=== PATIENT | male | born 1995 | race African-American/Black ===

== ENCOUNTER 2017-04-01 16:45 | Inpatient (IN) | payer MEDICAID, OTHER ==
--- NOTE | 2017-04-01 17:48 | ED ---
General Adult HPI - General Chief complaint: Recheck/Abnormal Lab/Rx Stated complaint: Shaking Time Seen by Provider: 04/01/17 16:58 Source: patient, family Mode of arrival: wheelchair Limitations: no limitations - History of Present Illness Initial comments: 21-year-old male patient presents to the emergency department today for evaluation of shaking episodes. Patient and girlfriend states that intermittently he has these episodes where he starts to feel shaky, and his girlfriend states that he doesn't answer her questions when he is having an episode. She states that he tries to speak, but he stutters and has difficulty getting his words out. Patient states that these episodes come on when he is having increased stress and is feeling increased emotion. Patient reports that he is also having auditory hallucinations. Patient states that the voices do tell him to do things but is not very specific about what they tell him to do. He states that he has a high level of stress every day. He denies any suicidal or homicidal ideation. Patient states that he occasionally becomes dizzy and nauseous during these episodes. States that he was seen and evaluated at [facility] the last time this happened and they gave him nausea medication and discharged him. Patient and girlfriend give very limited information regarding symptoms. Patient state he does not want to be here but his significant other made him come. Patient denies any recent rash, fever, chills, shortness breath, chest pain, abdominal pain, nausea, vomiting, diarrhea , constipation, back pain, numbness, tingling, weakness, hematuria, dysuria, urinary urgency, urinary frequency, headache, visual changes, or any other complaints. - Related Data Home Medications Medication Instructions Recorded Confirmed No Known Home Medications [No 04/01/17 04/01/17 Known Home Medications] Allergies Allergy/AdvReac Type Severity Reaction Status Date / Time No Known Allergies Allergy Verified 04/01/17 17:51 Review of Systems ROS Statement: Those systems with pertinent positive or pertinent negative responses have been documented in the HPI. ROS Other: All systems not noted in ROS Statement are negative. Past Medical History Past Medical History: No Reported History History of Any Multi-Drug Resistant Organisms: None Reported Past Surgical History: No Surgical Hx Reported Past Psychological History: No Psychological Hx Reported Smoking Status: Current every day smoker Past Alcohol Use History: None Reported Past Drug Use History: None Reported General Exam Limitations: no limitations General appearance: alert, in no apparent distress, other (This is a well- developed, well-nourished adult male patient in no acute distress. Vital signs upon presentation are temperature 97.5F, pulse 74, respirations 20, blood pressure 121/59, pulse ox 100% on room air.) Head exam: Present: atraumatic, normocephalic, normal inspection Eye exam: Present: normal appearance, PERRL, EOMI. Absent: scleral icterus, conjunctival injection, nystagmus, periorbital swelling ENT exam: Present: normal exam, normal oropharynx, mucous membranes moist Neck exam: Present: normal inspection. Absent: tenderness, meningismus, lymphadenopathy Respiratory exam: Present: normal lung sounds bilaterally. Absent: respiratory distress, wheezes, rales, rhonchi, stridor Cardiovascular Exam: Present: regular rate, normal rhythm, normal heart sounds. Absent: systolic murmur, diastolic murmur, rubs, gallop, clicks GI/Abdominal exam: Present: soft, normal bowel sounds. Absent: distended, tenderness, guarding, rebound, rigid Extremities exam: Present: normal inspection, full ROM, normal capillary refill. Absent: tenderness, pedal edema, joint swelling, calf tenderness Neurological exam: Present: alert, oriented X3, CN II-XII intact, other ( Strength in all 4 extremities is 5/5.) Psychiatric exam: Present: normal mood, depressed, flat affect, other (Patient is reluctant to speak, gives one word answers, he is withdrawn and inhibited.) Skin exam: Present: warm, dry, intact, normal color. Absent: rash Course Vital Signs 04/01/17 16:46 Temperature 97.5 F L Pulse Rate 74 Respiratory 20 Rate Blood Pressure 121/59 O2 Sat by Pulse 100 Oximetry Medical Decision Making - Medical Decision Making 21-year-old male patient presented today for valuation of vague psychiatric symptoms. Patient did report during history and physical that he was having auditory hallucinations that occasionally told him to do things. Patient was cleared medically and was evaluated by [facility]. It was felt that patient may be having an acute psychotic episode possibly related to schizophrenia. Recommendation was for admission. After patient was informed of this and became very upset pacing in the room, reported that he wanted his belongings and he wanted to leave. Tisha from [facility] was concerned as patient did report to her as well that he was having auditory hallucinations that told him to do things that he wouldn't normally do. She did petitioned the patient at this time. Patient was very upset and called his father. Patient did have his father on the phone at the time who was swearing and shouting and in telling the patient that we could hold him against his will. This was making the patient more anxious and upset. Patient was pacing back and forth in the room, and was verbally abusive toward staff. Patient did attempt to leave, security had to bring patient back into the room. Patient and father were very upset and accused staff of being racist. I did try to explain to patient that we are only trying to help him, that he was petitioned and could not leave at this time. We did remove the phone from the patient's possession. Patient did calm down and went up to mental health unit. - Lab Data Lab Results 04/01/17 Range/Units 17:33 Urine Opiates Screen Not Detected (NotDetected) Ur Oxycodone Screen Not Detected (NotDetected) Urine Methadone Screen Not Detected (NotDetected) Ur Propoxyphene Screen Not Detected (NotDetected) Ur Barbiturates Screen Not Detected (NotDetected) U Tricyclic Antidepress Not Detected (NotDetected) Ur Phencyclidine Scrn Not Detected (NotDetected) Ur Amphetamines Screen Not Detected (NotDetected) U Methamphetamines Scrn Not Detected (NotDetected) U Benzodiazepines Scrn Not Detected (NotDetected) Urine Cocaine Screen Not Detected (NotDetected) U Marijuana (THC) Screen Not Detected (NotDetected) Disposition Clinical Impression: Psychotic episode Narrative: Rule out Schizophrenia Disposition: TRANSFER TO PSYCH HOSP/UNIT Condition: Serious Decision to Admit Reason: Admit from EC Decision Date: 04/01/17 Decision Time: 21:37
[2017-04-01] MEDS ORDERED: ACETAMINOPHEN TAB 325 MG TAB PO PRN (21:39)
[2017-04-01] MEDS ORDERED: ZIPRASIDONE 20 MG VIAL IM PRN (21:39)
[2017-04-01] MEDS ORDERED: MAG HYDROX/AL HYDROX/SIMETH 30 ML CUP PO PRN (21:39)
[2017-04-01] MEDS ORDERED: LORazepam 1 MG TAB PO PRN (21:39)
[2017-04-01] MEDS ORDERED: MAGNESIUM HYDROXIDE 2,400 MG/10 ML CUP PO PRN (21:39)
[2017-04-01] MEDS ORDERED: LORazepam 2 MG/ML INJ IM PRN (21:42)
--- NOTE | 2017-04-01 23:56 | P.MDCNMH ---
History of Present Illness H&P Date: 04/01/17 Chief Complaint: Shaking 21-year-old male patient presents to the emergency department today for evaluation of shaking episodes. Patient and girlfriend states that intermittently he has these episodes where he starts to feel shaky, and his girlfriend states that he doesn't answer her questions when he is having an episode. She states that he tries to speak, but he stutters and has difficulty getting his words out. Patient states that these episodes come on when he is having increased stress and is feeling increased emotion. Patient stated that recently he has been having arguments with his girlfriend and she has been threatening to leave him. She is currently with his child. He is very stressed out because she was threatening him to leave. Patient told the ER staff that he was having some hallucinations, when he wasn' t just to get some medication for his anxiety and shaking. He told the ER physician that the voices do tell him to do things but was not very specific about what they tell him to do. He currently denies any suicidal or homicidal ideation but stated that he told the ER that he was suicidal. He was also evaluated at [facility] recently, falsely told the ER staff at [facility] that he was vomiting thinking that he will get medications for his anxiety. Patient denies any recent rash, fever, chills, shortness breath, chest pain, abdominal pain, nausea, vomiting, diarrhea, constipation, back pain, numbness, focal weakness, tingling, hematuria, dysuria, urinary urgency, urinary frequency, headache, visual changes, or any other complaints. Review of Systems 12 point review of system performed, negative except for HPI Past Medical History Past Medical History: No Reported History History of Any Multi-Drug Resistant Organisms: None Reported Past Surgical History: No Surgical Hx Reported Past Psychological History: No Psychological Hx Reported Smoking Status: Current every day smoker Past Alcohol Use History: None Reported Past Drug Use History: None Reported Medications and Allergies Home Medications Medication Instructions Recorded Confirmed Type No Known Home Medications [No 04/01/17 04/01/17 History Known Home Medications] Allergies Allergy/AdvReac Type Severity Reaction Status Date / Time No Known Allergies Allergy Verified 04/01/17 17:51 Physical Exam Vitals: Vital Signs Temp Pulse Resp BP Pulse Ox 04/01/17 16:46 97.5 F L 74 20 121/59 100 Intake and Output 11/11/17 11/11/17 11/12/17 14:59 22:59 06:59 Other: Weight 58.967 kg Patient Weight 04/02/17 06:59 Weight 58.967 kg Constitutional: No acute distress, conversant, pleasant Eyes:Anicteric sclerae, moist conjunctiva, no lid-lag, PERRLA, ENMT: Oropharynx clear, no erythema, exudates Neck: Supple, FROM, no masses, or JVD, No carotid bruits, No thyromegaly Lungs: Clear to auscultation, Clear to percussion, Normal respiratory effort, no accessory muscle use Cardiovascular: Heart regular in rate and rhythm, No murmurs, gallops, or rubs, No peripheral edema Abdominal: Soft, Nontender, no guarding, rebound or rigidity, Normoactive bowel sounds, No hepatomegaly, No splenomegaly, No palpable mass Skin: Normal temperature, tone, texture, turgor, no induration, No subcutaneous nodules, No rash, lesions, No ulcers Extremities: No digital cyanosis, No clubbing, Pedal pulses intact and symmetrical, Radial pulses intact and symmetrical, No calf tenderness Psychiatric: Alert and oriented to person, place and time, appropriate affect, intact judgement Neuro: Muscles Strength 5/5 in all 4 extremities, Sensation to light touch grossly present throughout, Cranial nerves II-XII grossly intact, no focal sensory deficits Cranial Nerve Examination - Cranial Nerves Cranial Nerve II- Optic: Intact Cranial Nerve III- Oculomotor: Intact Cranial Nerve IV- Trochlear: Intact Cranial Nerve V- Trigeminal: Intact Cranial Nerve - Abducens: Intact Cranial Nerve VII- Facial: Intact Cranial Nerve VIII- Auditory: Intact Cranial Nerve IX- Glossopharyngeal: Intact Cranial Nerve X- Vagus: Intact Cranial Nerve XI- Accessory: Intact Cranial Nerve XII- Hypoglossal: Intact Assessment and Plan Plan: #1 Worsening anxiety Likely secondary to stress he is experiencing because of his relationship with his girlfriend Further evaluation and management according to psychiatry Schizophrenia or anxiety disorders unlikely Rule out organic problem, check CBC, CMP, TSH, mag and phosphorus #2 Hallucinations, suicidal ideations and vomiting: Likely malingering No further action needed He was told not to take symptoms and directly state his problems in the future #3 Smoking: Advise to quit
[2017-04-02 08:23] LABS: Basophils % (A) 1 %; CH 29.7; CHCM 32.8; Eosinophils # (A) 0.2 k/uL (0-0.7); Eosinophils % (A) 3 %; HCT 46.8 % (39.0-53.0); HGB 15.2 gm/dL (13.0-17.5); Luc # (Auto) 0.12; Luc % (Auto) 2; Lymphocytes # (A) 2.4 k/uL (1.0-4.8); Lymphocytes % (A) 37 %; MCH 29.5 pg (25.0-35.0); MCHC 32.4 g/dL (31.0-37.0); MCV 90.9 fL (80.0-100.0); Mean Platelet Volume 6.6; Monocytes # (A) 0.4 k/uL (0-1.0); Monocytes % (A) 6 %; Neutrophils # (A) 3.3 k/uL (1.3-7.7); Neutrophils % (A) 52 %; RBC 5.15 m/uL (4.30-5.90); WBC 6.5 k/uL (4.0-11.0); WBC (Perox) 6.35
[2017-04-02 08:38] LABS: Anion Gap 9 mmol/L; Blood Urea Nitrogen 11 mg/dL (9-20); Calcium 9.9 mg/dL (8.4-10.2); Carbon Dioxide 27 mmol/L (22-30); Chloride 107 mmol/L (98-107); Glucose 89 mg/dL (74-99); Non-African American GFR(MDRD) >60 (>60 ml/min/1.73 sqM); Potassium 4.9 mmol/L (3.5-5.1); Sodium 143 mmol/L (137-145)
[2017-04-02] MEDS: NICOTINE 14MG/24HR PATCH TRANSDERM SCH (09:53)
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
[2017-04-03 07:18] VITALS: RESP 16
[2017-04-03] MEDS: NICOTINE 14MG/24HR PATCH TRANSDERM SCH ×2 (09:29→11:50)
--- NOTE | 2017-04-03 16:31 | PN ---
PROGRESS NOTE ADDENDUM: Patient has not had problems with his general health. MENTAL STATUS: Patient gave fair eye contact. He was restless. Thoughts were clear. He was not too spontaneous or interactive. His affect was blunted. His mood reserved. He seems somewhat distressed. ASSESSMENT: I will continue the current diagnosis and treatment plan. I will start the patient on Prozac 20 mg a day to address issues of anxiety, panic and depression. I reviewed medication issues with the patient including treatment, indications, side effects, time course of treatment. Again reviewed with the patient our plan to set up appropriate family contacts and meetings. We will continue to focus on stabilization and discharge planning. MMCHRISSYL / ADAMAN: [id number] /
--- NOTE | 2017-04-03 16:31 | PN ---
PROGRESS NOTE DATE OF SERVICE: 04/03/2017 CHIEF COMPLAINT: The patient was depressed. He had talked about having developed auditory hallucinations, paranoia, and thoughts of suicide. INTERVAL HISTORY: The patient has been doing fair. He had a quiet evening last night. He slept well today. He has been up and about. He tends to keep to himself though he does interact some with others. It is noted that he seems to go back and forth on what he discusses about his situation. At one point he may talk to people and say that he really has no reason to be in the hospital. At another point he might talk about the fact that he probably has had significant anxiety as well as some depression issues. He at times can be somewhat demanding about the idea of being discharged. He has been accepting of a treatment plan to have our manager social services be in touch with his mother to get further history as well as to possibly set up a family meeting with the patient's girlfriend. He acknowledges that there have been some issues in their relationship which may be part of his current difficulties. According to the girlfriend, he had developed severe anxiety and panic symptoms over the last month to where he would get tremors and have difficulty speaking because of his being unable to get his words out. MMODL / IJN: [id number] /
[2017-04-04 07:13] VITALS: BP 133/58; PULSE 61; TEMP 98.1
[2017-04-04] MEDS: NICOTINE 14MG/24HR PATCH TRANSDERM SCH (09:25)
--- NOTE | 2017-04-04 20:26 | P.PN ---
Progress Note - Text Progress Note Date: 04/04/17 Pt is a 21yo AAM who was admitted due to reported psychosis and suicidal thoughts Last 24hrs: Upon evaluation today, pt states that he has never experienced any hallucinations and denies SI. He states that prior to presentation in ED, his girlfriend tried to break up with him. They have been in a 2 year relationship and she is currently . He stats that she saw something on his phone that was not true and this led to an argument and break up. Pt states that this was all an act to get her attention so that she would not leave him. Pt has been cooperative and pleasant on the unit. He has not displayed any behavioral disturbances. SW reports that pt publicly apologized for wasting everyone's time by reporting symptoms that he was not experiencing. He was not started on any medications during hospital stay. Does not feel he needs any counseling after discharge. Does not appear to be significantly anxious or psychotic at this time. MSE: Pt is a 21yo well-groomed male who appears stated age. He is cooperative and pleasant. Speech is spontaneous with normal rate and volume. Mood is euthymic and affect appropriate. Not reporting SI and HI at this time. No reported AVH. Thought process is linear and logical. AAO x 3. Memory grossly intact. Judgment is limited and insight is fair. ASSESSMENT: 1. Adjustment DO with disturbance in conduct PLAN: SW to conduct family meeting with girlfriend. Pt to be discharged following meeting.
--- NOTE | 2017-04-24 20:26 | P.DS ---
Providers Date of admission: 04/01/17 21:06 Expected date of discharge: 04/04/17 Attending physician: Denton Willis DO Consults: 04/01/17 21:39 Consult Physician Routine Consulting Provider: [facility] Consult Reason/Comments: h and p, eval and tx, r/o metabolic disorder Do you want consulting provider notified?: Yes Primary care physician: Stated None - Discharge Diagnosis(es) (1) Adjustment disorder with disturbance of conduct Status: Acute Hospital Course: On initial presentation, pt reported that he was experiencing auditory hallucinations, but no prior psychiatric treatment. However, following admission and upon initial evaluation with Dr. Damon (who was covering for this provider at the time), patient stated that he reported psychotic symptoms to get his girlfriend's attention and denied all symptoms. He was initially admitted on an involuntary basis but did agree to sign in voluntarily. Patient was kept on the unit for a few days to further evaluate and observe symptoms. On day of discharge, patient evaluated by this provider and stated that he has never experienced any hallucinations and denied SI. He stated that prior to presentation in ED, his girlfriend tried to break up with him. They have been in a 2 year relationship and she is currently . He stated that she saw something on his phone that was not true and this led to an argument and break up. Pt stated that this was all an act to get her attention so that she would not leave him. Pt was cooperative and pleasant throughout hospital stay. He did not display any behavioral disturbances while on the unit. SW reported that pt publicly apologized for wasting everyone's time by reporting symptoms that he was not experiencing. He was not started on any medications during hospital stay. He did not feel he needed any counseling after discharge. After a few days of evaluation and observation, pt did not appear to be significantly anxious or psychotic. A family meeting with patient's girlfriend was arranged by patient's social services technician on the unit and it reportedly went well and girlfriend in agreement with discharge. Patient Condition at Discharge: Serious Plan - Discharge Summary Discharge Rx Participant: No New Discharge Prescriptions: New Nicotine 14Mg/24Hr Patch [Habitrol] 1 patch TRANSDERM DAILY #30 patch Discharge Medication List Nicotine 14Mg/24Hr Patch [Habitrol] 1 patch TRANSDERM DAILY #30 patch 04/04/17 [ Rx] Follow up Appointment(s)/Referral(s): None,Stated [Primary Care Provider] - 1-2 days Patient Instructions/Handouts: How to Stop Smoking (GEN) Discharge Disposition: HOME SELF-CARE
== END 2017-04-04 12:14 | disposition home or self-care (01) | DRG 882 ==
LOC: EC 16:45 → 3MHU 21:06
PROVIDERS: ADMIT Psychiatry & Neurology Psychiatry; ATTEND Psychiatry & Neurology Psychiatry
DX: F43.24 Adjustment disorder with disturbance of conduct (principal); R45.851 Suicidal ideations; F32.9 Major depressive disorder, single episode, unspecified; F41.0 Panic disorder [episodic paroxysmal anxiety]; F17.200 Nicotine dependence, unspecified, uncomplicated
CPT/HCPCS: 80048; 80306; 82075; 83036; 84443; 85025; 99285